=== PATIENT | male | born 1995 | race Two or more races ===

== ENCOUNTER 2018-01-23 11:22 | Inpatient (IN) | payer OTHER ==
[~2018-01-23] VITALS: Ht 185.4 cm; Wt 68.0 kg
== END 2018-01-26 17:00 | disposition home or self-care (01) | DRG 639 ==
LOC: ER 11:22 → ICU-2 15:00 → MEDJ 01-25 16:04
PROC: 4A033R1 Measurement of Arterial Saturation, Peripheral, Percutaneous Approach (ICD-10-PCS; principal; 2018-01-23)
DX: E10.10 Type 1 diabetes mellitus with ketoacidosis without coma (principal)

== ENCOUNTER 2019-03-04 07:55 | Inpatient (IN) | payer OTHER ==
[~2019-03-04] VITALS: Ht 182.9 cm; Wt 63.0 kg
[2019-03-04] MEDS ORDERED: HUMALOG100 UNIT/2 (08:14)
[2019-03-04] MEDS ORDERED: LANTUS SOL100 UNIT/1 (08:15)
== END 2019-03-08 16:24 | disposition home or self-care (01) | DRG 638 ==
LOC: ER 07:55 → ICU-2 15:22 → MEDJ 15:22 → ICU 15:22 → MEDJ 03-07 12:03
PROVIDERS: ADMIT Internal Medicine
PROC: 4A033R1 Measurement of Arterial Saturation, Peripheral, Percutaneous Approach (ICD-10-PCS; principal; 2019-03-04)
PROC: BW21ZZZ Computerized Tomography (CT Scan) of Abdomen and Pelvis (ICD-10-PCS; 2019-03-04)
DX: E10.10 Type 1 diabetes mellitus with ketoacidosis without coma (principal); N17.8 Other acute kidney failure; E86.0 Dehydration; E87.8 Other disorders of electrolyte and fluid balance, not elsewhere classified; E87.5 Hyperkalemia; R31.29 Other microscopic hematuria; R10.32 Left lower quadrant pain; Z79.4 Long term (current) use of insulin

== ENCOUNTER 2022-12-06 18:10 | Inpatient (IN) | payer OTHER ==
[~2022-12-06] VITALS: Ht 182.9 cm; Wt 132.9 kg
[~2022-12-06 18:10] MED LIST: ADMELOG100 UNIT/1; AMOX1TAB5 PO; HUMALOG100 UNIT/1 SUBCUTANEO; HUMALOG100 UNIT/2; HUMALOG100 UNIT/2 SQ; LANTUS SOL100 UNIT/1; LANTUS SOL100 UNIT/1 SQ; LANTUS SOL100 UNIT/1 SUBCUTANEO; LOSARTAN POTASSI1 GM MC; METOPROLOL SUCC25 MG; NEURONTIN600 M1; NIFEDIPINE20 MG PO; TOPROL XL50 M1
[2022-12-06] MEDS ORDERED: SIMBALTA (18:34)
[2022-12-06] MEDS ORDERED: TOPROL XL50 M1 (18:34)
--- NOTE | 2022-12-06 18:46 | NUR ---
SE RECIBE PTE ALERTA Y ORIENTADO X3 EL CUAL REFIERE VENIR POR VOMITOS Y DIARREAS DESDE IFEANYI. PTE REFIERE SER DIABETICO TIPO 1. SE MIDEN S/V, SE REALIZA DXT, PTE CON DXT EN 448. SE REALIZA EKG A PTE Y SE PRESENTA A MD. PTE SE COLOCA EN UNIDAD DE CRITICO ESTER ORDEN MEDICA. PTE SE CONECTA A MONITOR CARDIACO CON OXIMETRIA CONTINUA Y SE ORIENTA.
--- NOTE | 2022-12-06 19:04 | NUR ---
SE RECIBE PTE MASCULINO DE 25 ANOS ALERTA Y ORIENTADO X3 QUIEN AL MOMENTO NO REFIERE DOLOR. PTE AL MOMENTO EVALUADO POR DR TENORIO QUIEN ORDENA TX MED. SE LLEVA ACABO VENOPUNCION BAJO MEDIDAS ACEPTICAS. PTE PEND A RESULTADOS DE LAB. PTE SE CONETA A TELEMETRIA Y OXIMETRIA MARYA Y SE MANTIENE RECIBIENDO INFUCION DE 0.9% NSS A 1000 ML/HRA. PTE SE MANTIENE EN CRITICO 3 BAJO OBSERBACION POR CAMBIO EN KUNZ CONDICION.
[2022-12-06 19:12] LABS: HEMATOCRIT 48.3 % (39.0-48.0); HEMOGLOBIN 16.5 g/dL (13-16.00); MEAN CELL VOLUME 84.5 fL (80.0-100.00); MEAN CORPUSCULAR HEMOGLOBIN 28.9 pg (27.00-32.0); MEAN CORPUSCULAR HGB CONC 34.2 g/dl (32.0-36.0); PLATELET COUNT 316 K/uL (150-450); RED BLOOD COUNT 5.72 M/uL (4.00-6.00); RED CELL DISTRIBUTION WIDTH 13.7 % (11.5-14.5)
[2022-12-06 19:23] LABS: ABG PH 7.344 (7.35-7.45); ABG PO2 111.3 mmHg (80-100); ABG pCO2 33.8 mmHg (35-45); BASE EXCESS -6.7 mmol/l; SaO2 97.9 %
[2022-12-06 19:37] LABS: ALBUMIN 4.3 gm/dL (3.4-5.0); BILIRUBIN TOTAL 2.05 mg/dL (0.3-1.2); BILIRUBIN,CONJUGATED 0.47 mg/dL (0.0-0.2); BILIRUBIN,UNCONJUGATED 1.58 mg/dL (0.0-0.6); CALCIUM 9.8 mg/dL (8.5-10.1); CREATININE SERUM 1.52 mg/dL (0.70-1.30); GFR 56.16; GLOBULINA 4.1 G/DL (2.4-3.5); POTASSIUM 4.04 mEq/L (3.5-5.1); TOTAL PROTEIN 8.4 gm/dL (6.4-8.2)
[2022-12-06 19:44] LABS: allen test SATISFACTORY; o2 21 %; puncture site RADIAL RIGHT
[2022-12-06 19:47] LABS: URINE APPEARANCE Clear; URINE BILIRRUBIN Negative (NEGATIVE); URINE BLOOD Negative; URINE COLOR Yellow; URINE LEUKOCYTE Negative; URINE NITRATE Negative; URINE PROTEIN Negative (NEGATIVE); URINE UROBILINOGEN 0.2 E.U./dl
[2022-12-06 19:51] LABS: URINE BACTERIA 11.3 uL (0.0-1933); URINE EPITHELIAL CELLS 1.5 uL (0.0-38.8); URINE WBC 2.7 uL (0.0-23.2)
[2022-12-06 19:57] LABS: URINE GLUCOSE >=1000 MG/DL (NEGATIVE); URINE RBC 1.7 uL (0.0-20.8)
--- NOTE | 2022-12-06 20:50 | NUR ---
DR. TENORIO REFIERE QUE DESPUES QUE SE REALICE SONOGRAMA ABDOMINAL HUBICAR PTE AL AREA DE SECCION K CON MONITOR, NBP Y OXIMETRIA CONTINUA.
[2022-12-06 22:21] LABS: HEMATOCRIT 41.1 % (39.0-48.0); MEAN CELL VOLUME 83.2 fL (80.0-100.00); MEAN CORPUSCULAR HEMOGLOBIN 28.4 pg (27.00-32.0); MEAN CORPUSCULAR HGB CONC 34.1 g/dl (32.0-36.0); PLATELET COUNT 261 K/uL (150-450); RED BLOOD COUNT 4.94 M/uL (4.00-6.00); RED CELL DISTRIBUTION WIDTH 13.4 % (11.5-14.5)
--- NOTE | 2022-12-06 23:44 | NUR ---
SE RECIBE PTE EN CAMA CON BARANDAS ELEVADAS EN POSICION SEMI VAZQUEZ. PTE CONECTADO A AMONITOR CARDIACO Y OXIMETRIA. PTE CANALIZADO EN BRAZO Y ANTEBRAZO DERECHO AREAS LIBRES DE EDEMA Y DE ENROJECIMIENTO. PTE SE MANTIENE BAJO OBSERVACION POR CAMBIOS.
[2022-12-07 02:15] LABS: CKMB 2.8 NG/ML (0.5-3.6)
[2022-12-07 08:09] LABS: ALBUMIN 2.9 gm/dL (3.4-5.0); BILIRUBIN TOTAL 2.01 mg/dL (0.3-1.2); BILIRUBIN,CONJUGATED 0.28 mg/dL (0.0-0.2); BILIRUBIN,UNCONJUGATED 1.73 mg/dL (0.0-0.6); CALCIUM 8.7 mg/dL (8.5-10.1); CHOL HDL RATIO 1.6 (0-5.0); CREATININE SERUM 0.95 mg/dL (0.70-1.30); GFR 96.59; GLOBULINA 2.7 G/DL (2.4-3.5); POTASSIUM 4.75 mEq/L (3.5-5.1); TOTAL PROTEIN 5.6 gm/dL (6.4-8.2)
[2022-12-07 08:11] LABS: C-REACTIVE PROTEIN 1.35 MG/DL (0.00-0.29)
[2022-12-07 08:20] LABS: HEMATOCRIT 40.4 % (39.0-48.0); HEMOGLOBIN 13.3 g/dL (13-16.00); MEAN CELL VOLUME 85.6 fL (80.0-100.00); MEAN CORPUSCULAR HEMOGLOBIN 28.2 pg (27.00-32.0); MEAN CORPUSCULAR HGB CONC 32.9 g/dl (32.0-36.0); PLATELET COUNT 241 K/uL (150-450); RED BLOOD COUNT 4.72 M/uL (4.00-6.00); RED CELL DISTRIBUTION WIDTH 13.1 % (11.5-14.5)
[2022-12-07 08:31] LABS: ERYTHROCYTE SEDIMENTATION RATE 2 mm/hr
[2022-12-07 08:33] LABS: PH,URINE 5.5 (5.0-8.0); URINE APPEARANCE Clear; URINE BILIRRUBIN Negative (NEGATIVE); URINE BLOOD Negative; URINE COLOR Yellow; URINE LEUKOCYTE Negative; URINE NITRATE Negative; URINE PROTEIN Negative (NEGATIVE); URINE UROBILINOGEN 0.2 E.U./dl
[2022-12-07 08:36] LABS: URINE EPITHELIAL CELLS 8.4 uL (0.0-38.8); URINE WBC 12.8 uL (0.0-23.2)
[2022-12-07 09:11] LABS: INR 1.1; PARTIAL THROMBOPLASTIN TIME 26.2 SECONDS (22.0-34.0); PROTHROMBIN TIME 11.5 SECONDS (9.0-11.5)
[2022-12-07 09:14] LABS: URINE GLUCOSE >=1000 MG/DL (NEGATIVE)
[2022-12-07 11:04] LABS: CKMB 3.6 NG/ML (0.5-3.6)
[2022-12-07 18:49] LABS: CKMB 5.4 NG/ML (0.5-3.6)
[2022-12-08 11:52] LABS: HEMATOCRIT 43.7 % (39.0-48.0); HEMOGLOBIN 15.1 g/dL (13-16.00); MEAN CELL VOLUME 84.2 fL (80.0-100.00); MEAN CORPUSCULAR HEMOGLOBIN 29.2 pg (27.00-32.0); MEAN CORPUSCULAR HGB CONC 34.6 g/dl (32.0-36.0); PLATELET COUNT 250 K/uL (150-450); RED BLOOD COUNT 5.19 M/uL (4.00-6.00); RED CELL DISTRIBUTION WIDTH 13.5 % (11.5-14.5)
[2022-12-08 11:56] LABS: ALBUMIN 3.3 gm/dL (3.4-5.0); BILIRUBIN TOTAL 0.72 mg/dL (0.3-1.2); CALCIUM 8.9 mg/dL (8.5-10.1); CREATININE SERUM 0.81 mg/dL (0.70-1.30); GFR 116.11; GLOBULINA 2.9 G/DL (2.4-3.5); POTASSIUM 3.56 mEq/L (3.5-5.1); TOTAL PROTEIN 6.2 gm/dL (6.4-8.2)
== END 2022-12-09 17:05 | disposition home or self-care (01) | DRG 638 ==
LOC: ER 18:10 → SEC-K 23:52 → MEDI 23:52
PROVIDERS: General Practice; Internal Medicine; ADMIT Internal Medicine; ATTEND Internal Medicine
PROC: BW21ZZZ Computerized Tomography (CT Scan) of Abdomen and Pelvis (ICD-10-PCS; principal; 2022-12-06)
PROC: 4A12X4Z Monitoring of Cardiac Electrical Activity, External Approach (ICD-10-PCS; 2022-12-07)
DX: E10.10 Type 1 diabetes mellitus with ketoacidosis without coma (principal); N17.9 Acute kidney failure, unspecified; E86.0 Dehydration; K52.89 Other specified noninfective gastroenteritis and colitis; I10 Essential (primary) hypertension; Z20.822 Contact with and (suspected) exposure to COVID-19; Z79.4 Long term (current) use of insulin; E10.40 Type 1 diabetes mellitus with diabetic neuropathy, unspecified

== ENCOUNTER 2022-12-19 12:56 | Emergency (ER) | payer OTHER ==
[~2022-12-19] VITALS: Ht 182.9 cm; Wt 60.3 kg
[~2022-12-19 12:56] MED LIST changes: +SIMBALTA
[2022-12-19 17:11] LABS: HEMATOCRIT 41.9 % (39.0-48.0); MEAN CELL VOLUME 84.3 fL (80.0-100.00); MEAN CORPUSCULAR HEMOGLOBIN 28.1 pg (27.00-32.0); MEAN CORPUSCULAR HGB CONC 33.4 g/dl (32.0-36.0); PLATELET COUNT 337 K/uL (150-450); RED BLOOD COUNT 4.98 M/uL (4.00-6.00); RED CELL DISTRIBUTION WIDTH 13.6 % (11.5-14.5)
[2022-12-19 17:36] LABS: INR 1.02; PARTIAL THROMBOPLASTIN TIME 26.7 SECONDS (22.0-34.0); PROTHROMBIN TIME 10.7 SECONDS (9.0-11.5)
== END 2022-12-19 19:19 | disposition home or self-care (01) ==
LOC: ER 12:56
PROVIDERS: Nurse Practitioner Family
DX: R04.0 Epistaxis (principal)

== ENCOUNTER 2023-05-22 13:21 | Emergency (ER) | payer OTHER ==
[~2023-05-22] VITALS: Ht 182.9 cm; Wt 65.8 kg
[2023-05-22] MEDS ORDERED: NIFEDIPINE20 MG (14:24)
[2023-05-22] MEDS ORDERED: COZAAR100 MG PO (14:24)
[2023-05-22] MEDS ORDERED: NEURONTIN300 MG PO (14:24)
[2023-05-22] MEDS ORDERED: CEFTRIAXONE SODIUM 1,000 MG VIAL IV ONE (15:00)
[2023-05-22] MEDS ORDERED: KETOROLAC TROMETHAMINE 60 MG VIAL IM ONE (15:00)
[2023-05-22 15:29] LABS: HEMATOCRIT 45.5 % (39.0-48.0); MEAN CELL VOLUME 83.7 fL (80.0-100.00); MEAN CORPUSCULAR HEMOGLOBIN 29.4 pg (27.00-32.0); MEAN CORPUSCULAR HGB CONC 35.1 g/dl (32.0-36.0); PLATELET COUNT 216 K/uL (150-450); RED BLOOD COUNT 5.44 M/uL (4.00-6.00); RED CELL DISTRIBUTION WIDTH 13.3 % (11.5-14.5)
[2023-05-22 15:43] LABS: ERYTHROCYTE SEDIMENTATION RATE 16 mm/hr
[2023-05-22 15:50] LABS: CALCIUM 8.9 mg/dL (8.5-10.1); CREATININE SERUM 0.83 mg/dL (0.70-1.30); GFR 112.88; POTASSIUM 3.54 mEq/L (3.5-5.1)
[2023-05-22] MEDS ORDERED: INTESTINEX680 M1 PO (16:14)
[2023-05-22] MEDS ORDERED: DICLOFENAC SODI50 MG PO (16:14)
[2023-05-22] MEDS ORDERED: AMOX-CLAV 875-1 EACH PO (16:14)
== END 2023-05-22 16:37 | disposition home or self-care (01) ==
LOC: ER 13:21
PROVIDERS: Nurse Practitioner Family
DX: R22.0 Localized swelling, mass and lump, head (principal); E11.9 Type 2 diabetes mellitus without complications; Z79.4 Long term (current) use of insulin; I10 Essential (primary) hypertension

== ENCOUNTER 2024-03-21 22:05 | Inpatient (IN) | payer OTHER ==
[~2024-03-21] VITALS: Ht 182.9 cm; Wt 68.9 kg
[~2024-03-21 22:05] MED LIST changes: +AMOX-CLAV 875-1 EACH PO; +COZAAR100 MG PO; +CYMBALTA60 MG; +DICLOFENAC SODI50 MG PO; +DULOXETINE HCL60 MG PO; +GABAPENTIN300 MG PO; +INTESTINEX680 M1 PO; +LOSARTAN POTASS25 MG PO; +NEURONTIN300 MG PO; +NIFEDIPINE10 MG PO; +NIFEDIPINE20 MG; +ZITHROMAX200 MG PO
--- NOTE | 2024-03-21 22:22 | NUR ---
PACIENTE REFIERE VOMITOS X7 Y DIARREAS X8 DESDE EN LA MADRUGADA
[2024-03-21] MEDS ORDERED: ADMELOG100 UNIT/1 SQ (22:24)
--- NOTE | 2024-03-21 22:28 | NUR ---
DXT [id number]
--- NOTE | 2024-03-21 22:33 | NUR ---
DRA. JEAN REFIERE COLOCA PACIENTE EN CRITICO
[2024-03-21] MEDS ORDERED: 0.9 % SODIUM CHLORIDE 1,000 ML IV STA ×2 (23:17→23:19)
[2024-03-21] MEDS ORDERED: FAMOTIDINE/PF 20 MG/2 ML VIAL ONE (23:24)
[2024-03-21] MEDS ORDERED: METOCLOPRAMIDE HCL 5 MG/ML VIAL ONE (23:24)
[2024-03-21] MEDS ORDERED: METOCLOPRAMIDE HCL 5 MG/ML VIAL IV ONE (23:30)
[2024-03-21] MEDS ORDERED: FAMOtidine 10 MG/ML (4ML VIAL) IV ONE (23:30)
--- NOTE | 2024-03-22 00:04 | NUR ---
SE EDUCA A PTE SOBRE TX MEDICO, SE AMARILIS MUESTRAS DE LABORATORIO UTILIZANDO MEDIDAS ASEPTICAS. SE COLOCA H/L ANNE DE EDEMA. SE ADMINISTRAN MEDICAMENTOS ESTER ORDEN MEDICA. SE NOTIFICA ABGS PENDIENTES A REALIZAR. SE MIDEN S/V A PTE Y SE DOCUMENTAN. SE VERIFICA DXT DE PTE Y SE DOCUMENTA. PTE SE CONTINUA MONITORIANDO POR CAMBIOS.
[2024-03-22 00:06] LABS: URINE APPEARANCE Clear; URINE BILIRRUBIN Negative (NEGATIVE); URINE BLOOD Negative; URINE COLOR Yellow; URINE LEUKOCYTE Negative; URINE NITRATE Negative; URINE PROTEIN Negative (NEGATIVE); URINE UROBILINOGEN 0.2 E.U./dl
[2024-03-22 00:08] LABS: HEMOGLOBIN 17.3 g/dL (13-16.00); MEAN CELL VOLUME 88.4 fL (80.0-100.00); MEAN CORPUSCULAR HEMOGLOBIN 28.2 pg (27.00-32.0); MEAN CORPUSCULAR HGB CONC 31.9 g/dl (32.0-36.0); PLATELET COUNT 340 K/uL (150-450); RED BLOOD COUNT 6.13 M/uL (4.00-6.00); RED CELL DISTRIBUTION WIDTH 14.6 % (11.5-14.5)
[2024-03-22 00:09] LABS: HEMATOCRIT 54.2 % (39.0-48.0); URINE BACTERIA 184.8 uL (0.0-1933); URINE EPITHELIAL CELLS 10.8 uL (0.0-38.8); URINE RBC 2.5 uL (0.0-20.8)
[2024-03-22 00:10] LABS: URINE CAST 0.44 uL (0.0-1.40); URINE GLUCOSE >=1000 MG/DL (NEGATIVE); URINE KETONE 80 (NEGATIVE); URINE WBC 0.9 uL (0.0-23.2)
[2024-03-22 00:17] LABS: INR 1.14; PARTIAL THROMBOPLASTIN TIME 26.2 SECONDS (22.0-34.0); PROTHROMBIN TIME 12.3 SECONDS (9.0-11.5)
[2024-03-22 00:22] LABS: ALBUMIN 4.4 gm/dL (3.4-5.0); BILIRUBIN TOTAL 3.5 mg/dL (0.3-1.2); CREATININE SERUM 1.71 mg/dL (0.70-1.30); GFR 48.63; POTASSIUM 4.92 mEq/L (3.5-5.1); TOTAL PROTEIN 8.4 gm/dL (6.4-8.2)
[2024-03-22] MEDS ORDERED: INSULIN REGULAR, HUMAN 1,000 UNIT/10 ML UNITS IV STA ×2 (00:31→02:43)
[2024-03-22] MEDS ORDERED: SODIUM BICARBONATE 1 MEQ/ML DISP.SYRIN 50ML IV STA (00:32)
[2024-03-22] MEDS ORDERED: SODIUM BICARBONATE 50MEQ/50ML VIAL IV ONE (00:44)
[2024-03-22] MEDS ORDERED: SODIUM BICARBONATE 1 MEQ/ML DISP.SYRIN 50ML IV SCH (00:45)
--- NOTE | 2024-03-22 01:05 | NUR ---
SE EJECUTAN ORDENS MEDICAS NUEVAS. SE ADMINISTRAN 2 AMPOLLETAS DE BICARBONATO 100MEQ IV PUSH Y SE COLOCA 1 AMP DE BICABONATO 50MEQ EN 0.9NSS DE 1000ML BAJANDO A 200ML/HR. SE COLOCA HUMULIN R 7 UNIDADES A PTE IV ESTER ORDEN MEDICA. PTE SE CONTINUA MONITORIANDO POR CAMBIOS.
[2024-03-22 03:30] LABS: ABG PH 7.177 (7.35-7.45); ABG PO2 118.7 mmHg (80-100); ABG pCO2 22.6 mmHg (35-45)
[2024-03-22 03:31] LABS: BICARBONATE 8.2 mmol/l (23-25); Tco2 8.9 mmol/l; allen test SATISFACTORY; o2 32 %; puncture site RADIAL RIGHT
[2024-03-22 03:32] LABS: BASE EXCESS 18.3 mmol/l
[2024-03-22 03:33] LABS: SaO2 96.7 %
[2024-03-22 06:35] LABS: MEAN CELL VOLUME 84.3 fL (80.0-100.00); MEAN CORPUSCULAR HEMOGLOBIN 28.7 pg (27.00-32.0); MEAN CORPUSCULAR HGB CONC 34.1 g/dl (32.0-36.0); PLATELET COUNT 269 K/uL (150-450); RED BLOOD COUNT 5.22 M/uL (4.00-6.00); RED CELL DISTRIBUTION WIDTH 14.3 % (11.5-14.5)
[2024-03-22 06:35] LABS: ABG PH 7.322 (7.35-7.45); ABG PO2 150.2 mmHg (80-100); ABG pCO2 26.4 mmHg (35-45); BASE EXCESS -10.8 mmol/l; BICARBONATE 13.4 mmol/l (23-25); Tco2 14.2 mmol/l; allen test SATISFACTORY; o2 32 %; puncture site RADIAL RIGHT
[2024-03-22 06:56] LABS: ALBUMIN 3.2 gm/dL (3.4-5.0); BILIRUBIN TOTAL 2.77 mg/dL (0.3-1.2); CALCIUM 8.4 mg/dL (8.5-10.1); CREATININE SERUM 1.07 mg/dL (0.70-1.30); GFR 83.54; GLOBULINA 3.2 G/DL (2.4-3.5); POTASSIUM 4.3 mEq/L (3.5-5.1); TOTAL PROTEIN 6.4 gm/dL (6.4-8.2)
[2024-03-22] MEDS ORDERED: 0.9 % SODIUM CHLORIDE 1,000 ML IV SCH ×2 (07:00→13:00)
--- NOTE | 2024-03-22 07:39 | NUR ---
SE RECIBE PACIENTE EN CAMA #2 AREA DE ICU2. SE OFRECE RAFA PARA EVALUAR CONDI- CION Y RUFUS CUIDADOS CORRESPONDIENTES. PACIENTE DORMIDO. SE MIDEN Y DOCUMENTAS S/V. IVF'S PATENTES, BAJANDO .9 NSS POR VENO PUNCIN EN BRAZO DERECHO, AREA ANNE DE EDEMA Y/O ERITEMA. PACIENTE PENDIENTE A CONSSULTA. BARANDAS ELEVADAS POR KUNZ SEGURIDAD. SE MONITOREA POR CAMBIOS SIGNIFICATIVOS.
[2024-03-22] MEDS ORDERED: CEFTRIAXONE SODIUM 2,000 MG in 0.9 % SODIUM CHLORIDE 100 ML IV SCH (12:55)
[2024-03-22] MEDS ORDERED: INSULIN REGULAR, HUMAN 100 UNITS in 0.9 % SODIUM CHLORIDE 100 ML IV SCH (13:00)
[2024-03-22 15:15] VITALS: BP 100/62; O2SAT 98
[2024-03-22] MEDS ORDERED: INSULIN REGULAR, HUMAN 1,000 UNIT/10 ML UNITS ONE (16:30)
[2024-03-22] MEDS ORDERED: CEFTRIAXONE SODIUM 2,000 MG VIAL ONE (16:30)
[2024-03-22 17:06] VITALS: BP 140/70
[2024-03-22 17:48] LABS: CALCIUM 8.5 mg/dL (8.5-10.1); CREATININE SERUM 1.28 mg/dL (0.70-1.30); GFR 67.93; MAGNESIUM 2.5 mg/dL (1.8-2.4); POTASSIUM 5.25 mEq/L (3.5-5.1)
[2024-03-22 18:12] LABS: URINE APPEARANCE Clear; URINE BILIRRUBIN Negative (NEGATIVE); URINE BLOOD Negative; URINE COLOR Yellow; URINE LEUKOCYTE Negative; URINE NITRATE Negative; URINE PROTEIN Negative (NEGATIVE); URINE UROBILINOGEN 0.2 E.U./dl
[2024-03-22 18:15] LABS: URINE BACTERIA 119.9 uL (0.0-1933)
[2024-03-22 18:52] LABS: URINE CAST 0.88 uL (0.0-1.40); URINE GLUCOSE >=1000 MG/DL (NEGATIVE); URINE KETONE >=160 (NEGATIVE); URINE WBC 1.7 uL (0.0-23.2)
[2024-03-22 20:52] VITALS: BP 110/68; O2SAT 99
[2024-03-23] VITALS: BP 130/85; O2SAT 99
[2024-03-23 05:00] VITALS: BP 101/59; O2SAT 99
[2024-03-23 07:31] LABS: CALCIUM 9.1 mg/dL (8.5-10.1); CREATININE SERUM 1.15 mg/dL (0.70-1.30); GFR 76.87; POTASSIUM 3.87 mEq/L (3.5-5.1)
[2024-03-23 08:33] VITALS: BP 112/72; O2SAT 99
[2024-03-23 18:01] VITALS: BP 132/93
[2024-03-24 01:26] VITALS: BP 127/87; O2SAT 99
[2024-03-24 08:13] VITALS: BP 113/70; O2SAT 97
[2024-03-24 15:11] LABS: HEMATOCRIT 44.8 % (39.0-48.0); HEMOGLOBIN 15.2 g/dL (13-16.00); MEAN CELL VOLUME 85.5 fL (80.0-100.00); MEAN CORPUSCULAR HEMOGLOBIN 28.9 pg (27.00-32.0); MEAN CORPUSCULAR HGB CONC 33.9 g/dl (32.0-36.0); PLATELET COUNT 255 K/uL (150-450); RED BLOOD COUNT 5.24 M/uL (4.00-6.00); RED CELL DISTRIBUTION WIDTH 14.1 % (11.5-14.5)
[2024-03-24 17:03] VITALS: BP 125/88
[2024-03-25 02:15] VITALS: BP 114/75; O2SAT 100
[2024-03-25 08:55] VITALS: BP 124/86
== END 2024-03-25 09:46 | disposition home or self-care (01) | DRG 639 ==
LOC: ER 22:08 → SEC-K 03-22 14:02 → MEDJ 03-22 14:02 → ICU-2 03-23 06:56 → MEDJ 03-23 08:16
PROVIDERS: Emergency Medicine; General Practice; Internal Medicine Endocrinology, Diabetes & Metabolism; ADMIT Internal Medicine; ATTEND Internal Medicine
DX: E10.10 Type 1 diabetes mellitus with ketoacidosis without coma (principal); D72.828 Other elevated white blood cell count; Z76.4 Other boarder to healthcare facility

== ENCOUNTER → 2024-03-30 | Emergency (ER) | payer OTHER ==
[~2024-03-30] VITALS: Ht 182.9 cm; Wt 65.8 kg
[~2024-03-30] MED LIST changes: +ADMELOG100 UNIT/1 SQ
== END | disposition left against medical advice (07) ==
LOC: ER 19:13
DX: Z53.21 Procedure and treatment not carried out due to patient leaving prior to being seen by health care provider (principal)

== ENCOUNTER 2024-06-07 11:49 | Inpatient (IN) | payer OTHER ==
[~2024-06-07] VITALS: Ht 182.9 cm; Wt 68.0 kg
--- NOTE | 2024-06-07 12:43 | NUR ---
PTE ALERTA Y ORIENTADO X3 REFIERE TENER VOMITOS DESDE ESTAQ MANANA SE AMARILIS SV Y SE UBICA EN OBSERVACION 08, DEXTRO EN 343MG/DL.
[2024-06-07] MEDS ORDERED: 0.9 % SODIUM CHLORIDE 1,000 ML IV SCH ×2 (14:00→21:15)
[2024-06-07] MEDS ORDERED: ONDANSETRON HCL 2 MG/ML VIAL IV ONE (14:00)
[2024-06-07] MEDS ORDERED: ONDANSETRON HCL 2 MG/ML VIAL ONE (14:02)
--- NOTE | 2024-06-07 14:22 | NUR ---
SE ADMINITSRA TX ESTER ORDEN MEDICA Y SE REALIZA LAB. SE ORIENTA A PTE QUIEN REFIERE ENTENDER Y ACEPTAR.
[2024-06-07 14:32] LABS: HEMATOCRIT 52.1 % (39.0-48.0); HEMOGLOBIN 17.2 g/dL (13-16.00); MEAN CELL VOLUME 87.5 fL (80.0-100.00); MEAN CORPUSCULAR HEMOGLOBIN 28.9 pg (27.00-32.0); PLATELET COUNT 340 K/uL (150-450); RED BLOOD COUNT 5.95 M/uL (4.00-6.00); RED CELL DISTRIBUTION WIDTH 14.5 % (11.5-14.5)
[2024-06-07 14:51] LABS: ALBUMIN 4.2 gm/dL (3.4-5.0); BILIRUBIN TOTAL 3.48 mg/dL (0.3-1.2); CREATININE SERUM 1.46 mg/dL (0.70-1.30); GFR 58.36; GLOBULINA 4.3 G/DL (2.4-3.5); TOTAL PROTEIN 8.5 gm/dL (6.4-8.2)
[2024-06-07 14:52] LABS: POTASSIUM 4.85 mEq/L (3.5-5.1)
[2024-06-07] MEDS ORDERED: PIPERACILLIN/TAZOBACTAM SODIUM 3.375 GM VIAL IV ONE ×2 (18:00→18:13)
[2024-06-07] MEDS ORDERED: INSULIN REGULAR, HUMAN 1,000 UNIT/10 ML UNITS SUBCUTANEO ONE (18:00)
[2024-06-07] MEDS ORDERED: 0.9 % SODIUM CHLORIDE 1,000 ML IV ONE (18:00)
[2024-06-07 18:07] LABS: URINE APPEARANCE Clear; URINE BILIRRUBIN Negative (NEGATIVE); URINE BLOOD Negative; URINE COLOR Yellow; URINE LEUKOCYTE Negative; URINE NITRATE Negative; URINE PROTEIN Negative (NEGATIVE); URINE UROBILINOGEN 0.2 E.U./dl
[2024-06-07 18:15] LABS: URINE RBC 2.5 uL (0.0-20.8)
[2024-06-07 18:17] LABS: URINE BACTERIA 3.6 uL (0.0-1933); URINE CAST 0.73 uL (0.0-1.40); URINE EPITHELIAL CELLS 0.9 uL (0.0-38.8); URINE GLUCOSE >=1000 MG/DL (NEGATIVE); URINE KETONE >=160 (NEGATIVE); URINE WBC 0.7 uL (0.0-23.2)
[2024-06-07 19:48] LABS: HEMATOCRIT 47.8 % (39.0-48.0); HEMOGLOBIN 15.8 g/dL (13-16.00); MEAN CELL VOLUME 86.9 fL (80.0-100.00); MEAN CORPUSCULAR HEMOGLOBIN 28.7 pg (27.00-32.0); PLATELET COUNT 295 K/uL (150-450); RED CELL DISTRIBUTION WIDTH 14.9 % (11.5-14.5)
--- NOTE | 2024-06-07 20:05 | NUR ---
SE NOTIFICAN VERONICA DYKES
[2024-06-07 20:40] LABS: CALCIUM 8.9 mg/dL (8.5-10.1); CREATININE SERUM 1.37 mg/dL (0.70-1.30); GFR 62.81; POTASSIUM 4.7 mEq/L (3.5-5.1)
[2024-06-07] MEDS ORDERED: CEFTRIAXONE SODIUM 2,000 MG in 0.9 % SODIUM CHLORIDE 100 ML IV SCH (21:14)
[2024-06-07] MEDS ORDERED: FAMOTIDINE/PF 20 MG in 0.9 % SODIUM CHLORIDE 8 ML IV PUSH SCH (21:14)
[2024-06-07] MEDS ORDERED: DEXTROSE 50 % IN WATER 0.5 G/ML DISP.SYRIN IV PRN (21:15)
[2024-06-07] MEDS ORDERED: INSULIN LISPRO 1,000 UNIT/10 ML UNITS SUBCUTANEO PRN (21:15)
[2024-06-07] MEDS ORDERED: ACETAMINOPHEN 500 MG GEL..CAP PO PRN (21:15)
[2024-06-07] MEDS ORDERED: ONDANSETRON HCL 4 MG in 0.9 % SODIUM CHLORIDE 50 ML IV PRN (21:15)
[2024-06-07 21:21] LABS: ABG PH 7.251 (7.35-7.45); ABG PO2 109.9 mmHg (80-100); ABG pCO2 29.8 mmHg (35-45); BASE EXCESS -12.9 mmol/l; BICARBONATE 12.8 mmol/l (23-25); SaO2 96.9 %; Tco2 13.7 mmol/l
[2024-06-07] MEDS ORDERED: POTASSIUM CHLORIDE/NACL 0.9% 1,000 ML IV NR (22:00)
[2024-06-07] MEDS ORDERED: INSULIN REGULAR, HUMAN 100 UNITS in 0.9 % SODIUM CHLORIDE 100 ML IV SCH (22:00)
[2024-06-07] MEDS ORDERED: DEXTROSE 5 % AND 0.9 % NACL 1,000 ML IV SCH (22:00)
[2024-06-07] MEDS ORDERED: INSULIN REGULAR, HUMAN 1,000 UNIT/10 ML UNITS ONE (22:02)
[2024-06-07] MEDS ORDERED: FAMOTIDINE/PF 20 MG/2 ML VIAL ONE (22:07)
[2024-06-07] MEDS ORDERED: CEFTRIAXONE SODIUM 2,000 MG VIAL ONE (22:07)
[2024-06-07 22:20] LABS: INR 1.15; PARTIAL THROMBOPLASTIN TIME 24.5 SECONDS (22.0-34.0); PROTHROMBIN TIME 12.4 SECONDS (9.0-11.5)
[2024-06-07 22:26] LABS: ALBUMIN 3.7 gm/dL (3.4-5.0); BILIRUBIN TOTAL 3.03 mg/dL (0.3-1.2); TOTAL PROTEIN 7.7 gm/dL (6.4-8.2)
[2024-06-07 22:28] LABS: BILIRUBIN,CONJUGATED 0.33 mg/dL (0.0-0.2); BILIRUBIN,UNCONJUGATED 2.7 mg/dL (0.0-0.6)
[2024-06-07 22:42] LABS: CALCIUM 10.1 mg/dL (8.5-10.1); CREATININE SERUM 1.49 mg/dL (0.70-1.30); GFR 57.01; POTASSIUM 4.87 mEq/L (3.5-5.1)
[2024-06-07 22:44] LABS: allen test SATISFACTORY; mode ROOM AIR; o2 21 %; puncture site RADIAL LEFT
[2024-06-07 22:47] VITALS: BP 117/72; O2SAT 100
[2024-06-07 23:16] VITALS: BP 102/69; O2SAT 100
[2024-06-08] VITALS (10 sets, daily range): BP systolic 100–125; BP diastolic 50–93; O2SAT 98–100
[2024-06-08 11:52] LABS: CALCIUM 8.5 mg/dL (8.5-10.1); CREATININE SERUM 1.03 mg/dL (0.70-1.30); GFR 87.29; POTASSIUM 4.1 mEq/L (3.5-5.1)
[2024-06-08] MEDS ORDERED: SODIUM CHLORIDE 0.45 % 1,000 ML IV SCH (22:30)
[2024-06-09 04:00] VITALS: BP 106/69; O2SAT 100
[2024-06-09 06:42] LABS: HEMATOCRIT 44.5 % (39.0-48.0); HEMOGLOBIN 14.8 g/dL (13-16.00); MEAN CELL VOLUME 86.7 fL (80.0-100.00); MEAN CORPUSCULAR HEMOGLOBIN 28.9 pg (27.00-32.0); MEAN CORPUSCULAR HGB CONC 33.3 g/dl (32.0-36.0); PLATELET COUNT 229 K/uL (150-450); RED BLOOD COUNT 5.13 M/uL (4.00-6.00); RED CELL DISTRIBUTION WIDTH 14.7 % (11.5-14.5)
[2024-06-09 07:21] LABS: ALBUMIN 2.8 gm/dL (3.4-5.0); BILIRUBIN TOTAL 1.46 mg/dL (0.3-1.2); CALCIUM 8.4 mg/dL (8.5-10.1); CREATININE SERUM 0.79 mg/dL (0.70-1.30); GFR 118.56; GLOBULINA 2.7 G/DL (2.4-3.5); PHOSPHOROUS 2.6 mg/dL (2.5-4.9); POTASSIUM 3.72 mEq/L (3.5-5.1); TOTAL PROTEIN 5.5 gm/dL (6.4-8.2)
[2024-06-09 07:23] VITALS: BP 111/76; O2SAT 99
[2024-06-09 07:28] LABS: C-REACTIVE PROTEIN 1.38 MG/DL (0.00-0.29)
[2024-06-09 12:00] VITALS: BP 124/83; O2SAT 100
[2024-06-09 15:50] VITALS: BP 126/95; O2SAT 100
[2024-06-09 19:48] VITALS: BP 136/97; O2SAT 99
[2024-06-09] MEDS ORDERED: FAMOtidine 20 MG TABLET PO SCH (21:00)
[2024-06-10 02:04] VITALS: BP 128/83; O2SAT 98
[2024-06-10] MEDS ORDERED: CEFTRIAXONE SODIUM 2,000 MG VIAL ONE (08:09)
[2024-06-10 10:20] VITALS: BP 105/70; O2SAT 98
[2024-06-10 17:40] VITALS: BP 143/103; O2SAT 99
== END 2024-06-10 16:07 | disposition home or self-care (01) | DRG 871 ==
LOC: ER 11:50 → SURH 21:24 → ICU 21:24 → ICU-2 22:42 → ICU 06-08 02:45 → MEDI 06-09 19:27
PROVIDERS: Emergency Medicine; General Practice; Internal Medicine Endocrinology, Diabetes & Metabolism; Internal Medicine Infectious Disease; ADMIT Student in an Organized Health Care Education/Training Program; ATTEND Student in an Organized Health Care Education/Training Program
PROC: BW21ZZZ Computerized Tomography (CT Scan) of Abdomen and Pelvis (ICD-10-PCS; principal; 2024-06-07)
DX: A41.9 Sepsis, unspecified organism (principal); E10.10 Type 1 diabetes mellitus with ketoacidosis without coma; N17.8 Other acute kidney failure; R65.10 Systemic inflammatory response syndrome (SIRS) of non-infectious origin without acute organ dysfunction; E86.0 Dehydration

== ENCOUNTER 2024-07-05 14:25 | Inpatient (IN) | payer OTHER ==
[~2024-07-05] VITALS: Ht 182.9 cm; Wt 68.0 kg
--- NOTE | 2024-07-05 15:55 | NUR ---
PACIENTE ALERTA Y ORIENTADO X3 EL MISMO REFIERE TENER LA AZUCAR ELEVADA SE LE RESTIMA LA CUAL DA 599 .S/V ESTABLE DENTRO DE KUNZ CONDICION .PACIENTE EN ESPERA DE EVALUACION MEDICA.
[2024-07-05] MEDS ORDERED: FAMOTIDINE/PF 20 MG in 0.9 % SODIUM CHLORIDE 8 ML IV PUSH STA (16:27)
[2024-07-05] MEDS ORDERED: ONDANSETRON HCL 2 MG/ML VIAL IV ONE (16:30)
[2024-07-05] MEDS ORDERED: INSULIN REGULAR, HUMAN 100 UNITS in 0.9 % SODIUM CHLORIDE 100 ML IV SCH (16:30)
[2024-07-05] MEDS ORDERED: 0.9 % SODIUM CHLORIDE 1,000 ML IV SCH ×2 (16:30→19:00)
[2024-07-05] MEDS ORDERED: INSULIN REGULAR, HUMAN 1,000 UNIT/10 ML UNITS IV ONE (16:30)
[2024-07-05] MEDS ORDERED: ONDANSETRON HCL 2 MG/ML VIAL ONE (16:36)
[2024-07-05] MEDS ORDERED: FAMOTIDINE/PF 20 MG/2 ML VIAL ONE ×2 (16:36→21:08)
[2024-07-05 16:41] LABS: BASO % 0.6 % (0.1-1.2); EOS # 0.01 (0.04-0.54); HEMATOCRIT 53.4 % (40.1-51.0); HEMOGLOBIN 17.7 g/dL (13.7-17.5); LYMPH % 6.1 % (19.3-53.1); MEAN CORPUSCULAR HEMOGLOBIN 28.3 pg (25.6-32.2); MONO # 1.99 (0.24-0.82); MONO % 8.6 % (4.7-12.5); NEUT # 19.03 (1.56-6.13); NEUT % 82.7 % (34.0-71.1); PLATELET COUNT 337 K/uL (163-369); RED BLOOD COUNT 6.26 M/uL (4.63-6.08)
--- NOTE | 2024-07-05 16:54 | NUR ---
SE ORIENTA PTE SOBRE TX A SEGUIR, EL MISMO REFIERE ENTENDER. SE JAMAAL MUESTRA DE LAB Y SE CANALIZA BAJO MEDIDAS ASEPTICAS
[2024-07-05 17:14] LABS: ALBUMIN 4.9 gm/dL (3.4-5.0); BILIRUBIN TOTAL 4.31 mg/dL (0.3-1.2); CALCIUM 10.3 mg/dL (8.5-10.1); CREATININE SERUM 1.85 mg/dL (0.70-1.30); GFR 44.41; GLOBULINA 3.7 G/DL (2.4-3.5); POTASSIUM 4.73 mEq/L (3.5-5.1); TOTAL PROTEIN 8.6 gm/dL (6.4-8.2)
[2024-07-05 17:18] LABS: INR 1.14; PARTIAL THROMBOPLASTIN TIME 25.9 SECONDS (22.0-34.0); PROTHROMBIN TIME 12.3 SECONDS (9.0-11.5)
[2024-07-05 17:19] LABS: ABG PO2 115.6 mmHg (80-100); ABG pCO2 25.3 mmHg (35-45); BASE EXCESS -17.5 mmol/l; BICARBONATE 9.2 mmol/l (23-25); SaO2 96.5 %
[2024-07-05 17:26] LABS: URINE APPEARANCE Clear; URINE BILIRRUBIN Negative (NEGATIVE); URINE BLOOD Negative; URINE COLOR Yellow; URINE LEUKOCYTE Negative; URINE NITRATE Negative; URINE PROTEIN Negative (NEGATIVE); URINE UROBILINOGEN 0.2 E.U./dl
[2024-07-05 17:29] LABS: ABG PH 7.177 (7.35-7.45); allen test SATISFACTORY; mode ROOM AIR; o2 21 %; puncture site RADIAL RIGHT
[2024-07-05 17:31] LABS: URINE BACTERIA 103.9 uL (0.0-1933); URINE EPITHELIAL CELLS 3.4 uL (0.0-38.8)
[2024-07-05 17:34] LABS: URINE GLUCOSE >=1000 MG/DL (NEGATIVE); URINE KETONE >=160 (NEGATIVE); URINE RBC 1.3 uL (0.0-20.8)
[2024-07-05 17:35] LABS: URINE CAST 0.29 uL (0.0-1.40); URINE WBC 0.9 uL (0.0-23.2)
[2024-07-05 17:41] LABS: COVID-19 AG NEGATIVE (NEGATIVE)
[2024-07-05] MEDS ORDERED: MAGNESIUM SULFATE 10,000 MG/20 ML VIAL IV ONE (17:45)
[2024-07-05 18:00] VITALS: BP 133/71; O2SAT 98
[2024-07-05] MEDS ORDERED: MAGNESIUM SULFATE IN WATER 2 GM/50 ML PIGGYBAG IV ONE (18:15)
[2024-07-05] MEDS ORDERED: ENOXAPARIN SODIUM 40 MG/0.4 ML SYRINGE SUBCUTANEO SCH (18:59)
[2024-07-05 19:00] VITALS: BP 119/64; O2SAT 98
[2024-07-05] MEDS ORDERED: ONDANSETRON HCL 4 MG in 0.9 % SODIUM CHLORIDE 50 ML IV PRN (19:00)
[2024-07-05] MEDS ORDERED: POTASSIUM CHLORIDE/NACL 0.9% 1,000 ML IV ONE (19:00)
[2024-07-05] MEDS ORDERED: ACETAMINOPHEN 500 MG GEL..CAP PO PRN (19:00)
[2024-07-05] MEDS ORDERED: FAMOTIDINE/PF 20 MG in 0.9 % SODIUM CHLORIDE 8 ML IV PUSH SCH (19:00)
[2024-07-05 20:00] VITALS: BP 127/71; O2SAT 98
[2024-07-05 21:00] VITALS: BP 153/75; O2SAT 98
[2024-07-05] MEDS ORDERED: POTASSIUM CHLORIDE/NACL 0.9% 20 MEQ/1,000 ML PIGGYBAG IV ONE (21:06)
[2024-07-05] MEDS ORDERED: ENOXAPARIN SODIUM 40 MG/0.4 ML SYRINGE SUBCUTANEO ONE (21:07)
[2024-07-05 21:29] VITALS: BP 153/75
[2024-07-05 22:00] VITALS: BP 115/60; O2SAT 97
[2024-07-05 22:10] LABS: CALCIUM 8.3 mg/dL (8.5-10.1); CREATININE SERUM 1.4 mg/dL (0.70-1.30); GFR 61.26; PHOSPHOROUS 3.7 mg/dL (2.5-4.9); POTASSIUM 4.55 mEq/L (3.5-5.1)
[2024-07-06] VITALS (15 sets, daily range): BP systolic 97–130; BP diastolic 47–82; O2SAT 94–99
[2024-07-06] MEDS ORDERED: DEXTROSE 5 %-0.45 % SOD CHLORD 1,000 ML IV STA (07:34)
[2024-07-06 07:42] LABS: MAGNESIUM 2.8 mg/dL (1.8-2.4); PHOSPHOROUS 2.9 mg/dL (2.5-4.9)
[2024-07-06 07:43] LABS: TSH 0.334 uIU/mL (0.358-3.74)
[2024-07-06] MEDS ORDERED: PANTOPRAZOLE SODIUM 80 MG in 0.9 % SODIUM CHLORIDE 100 ML IV SCH (07:45)
[2024-07-06] MEDS ORDERED: CEFTRIAXONE SODIUM 2,000 MG in 0.9 % SODIUM CHLORIDE 100 ML IV SCH (09:00)
[2024-07-06] MEDS ORDERED: METOCLOPRAMIDE HCL 10 MG in DEXTROSE 5 % IN WATER 50 ML IV SCH (09:00)
[2024-07-06 09:53] LABS: ABG PH 7.338 (7.35-7.45); ABG PO2 103.5 mmHg (80-100); ABG pCO2 32.7 mmHg (35-45); BASE EXCESS -7.5 mmol/l; BICARBONATE 17.2 mmol/l (23-25); SaO2 97.3 %; Tco2 18.2 mmol/l
[2024-07-06 10:21] LABS: allen test SATISFACTORY; mode ROOM AIR; o2 21 %; puncture site RADIAL RIGHT
[2024-07-06 11:20] LABS: CALCIUM 8.3 mg/dL (8.5-10.1); CREATININE SERUM 1.18 mg/dL (0.70-1.30); GFR 74.62; POTASSIUM 4.38 mEq/L (3.5-5.1)
[2024-07-06 11:22] LABS: TSH 0.278 uIU/mL (0.358-3.74)
[2024-07-06] MEDS ORDERED: SODIUM CHLORIDE 0.45 % 1,000 ML IV SCH (12:15)
[2024-07-06] MEDS ORDERED: CEFTRIAXONE SODIUM 2,000 MG VIAL IV SCH (18:34)
[2024-07-06] MEDS ORDERED: CEFTRIAXONE SODIUM 2,000 MG VIAL ONE (18:51)
[2024-07-06] MEDS ORDERED: INSULIN GLARGINE,HUM.REC.ANLOG 1,000 UNITS/10 ML UNITS SUBCUTANEO STA (20:41)
[2024-07-06] MEDS ORDERED: DEXTROSE 50 % IN WATER 0.5 G/ML VIAL IV PRN (20:45)
[2024-07-06] MEDS ORDERED: INSULIN LISPRO 1,000 UNIT/10 ML UNITS SUBCUTANEO PRN (20:45)
[2024-07-07] VITALS (11 sets, daily range): BP systolic 99–133; BP diastolic 52–87; O2SAT 96–100
[2024-07-07] MEDS ORDERED: METOCLOPRAMIDE HCL 5 MG/ML VIAL ONE (00:12)
[2024-07-07 06:57] LABS: BASO % 0.5 % (0.1-1.2); EOS # 0.24 (0.04-0.54); EOS % 2.2 % (0.7-7.0); HEMATOCRIT 41.1 % (40.1-51.0); HEMOGLOBIN 13.6 g/dL (13.7-17.5); LYMPH # 2.78 (1.18-3.74); LYMPH % 26.1 % (19.3-53.1); MONO # 0.85 (0.24-0.82); NEUT # 6.72 (1.56-6.13); NEUT % 62.9 % (34.0-71.1); PLATELET COUNT 233 K/uL (163-369); RED BLOOD COUNT 4.86 M/uL (4.63-6.08); RED CELL DISTRIBUTION WIDTH 13.2 % (11.6-14.4)
[2024-07-07 07:44] LABS: ALBUMIN 2.8 gm/dL (3.4-5.0); BILIRUBIN TOTAL 2.62 mg/dL (0.3-1.2); CALCIUM 7.7 mg/dL (8.5-10.1); CREATININE SERUM 1.02 mg/dL (0.70-1.30); GFR 88.28; PHOSPHOROUS 2.7 mg/dL (2.5-4.9); POTASSIUM 3.72 mEq/L (3.5-5.1); TOTAL PROTEIN 5.8 gm/dL (6.4-8.2)
[2024-07-07 07:50] LABS: C-REACTIVE PROTEIN 4.36 MG/DL (0.00-0.29)
[2024-07-07] MEDS ORDERED: INSULIN GLARGINE,HUM.REC.ANLOG 1,000 UNITS/10 ML UNITS SUBCUTANEO STA (21:11)
[2024-07-07] MEDS ORDERED: INSULIN GLARGINE,HUM.REC.ANLOG 1,000 UNITS/10 ML UNITS SUBCUTANEO ONE (21:54)
[2024-07-08 01:21] VITALS: BP 111/74; O2SAT 97
[2024-07-08] MEDS ORDERED: INSULIN LISPRO 1,000 UNIT/10 ML UNITS SUBCUTANEO SCH (08:00)
[2024-07-08] MEDS ORDERED: PANTOPRAZOLE SODIUM 40 MG TABLET.DR PO SCH (09:00)
[2024-07-08] MEDS ORDERED: RIVAROXABAN 10 MG TAB PO SCH (09:00)
[2024-07-08 09:15] VITALS: BP 132/89; O2SAT 98
[2024-07-08 16:53] LABS: URINE APPEARANCE Clear; URINE BILIRRUBIN Negative (NEGATIVE); URINE BLOOD Negative; URINE COLOR Yellow; URINE KETONE Negative (NEGATIVE); URINE LEUKOCYTE Negative; URINE NITRATE Negative; URINE PROTEIN Negative (NEGATIVE); URINE UROBILINOGEN 0.2 E.U./dl
[2024-07-08 16:54] LABS: URINE BACTERIA 6.1 uL (0.0-1933)
[2024-07-08] MEDS ORDERED: VANCOMYCIN HCL 1,000 MG VIAL IV SCH (17:00)
[2024-07-08 17:18] VITALS: BP 125/84
[2024-07-08 17:28] LABS: URINE EPITHELIAL CELLS 0.3 uL (0.0-38.8); URINE GLUCOSE >=1000 MG/DL (NEGATIVE); URINE RBC 1.1 uL (0.0-20.8); URINE WBC 1.5 uL (0.0-23.2)
[2024-07-08 17:31] LABS: ALBUMIN 3.4 gm/dL (3.4-5.0); BILIRUBIN TOTAL 1.57 mg/dL (0.3-1.2); BILIRUBIN,CONJUGATED 0.35 mg/dL (0.0-0.2); BILIRUBIN,UNCONJUGATED 1.22 mg/dL (0.0-0.6); TOTAL PROTEIN 6.5 gm/dL (6.4-8.2)
[2024-07-08] MEDS ORDERED: INSULIN GLARGINE,HUM.REC.ANLOG 1,000 UNITS/10 ML UNITS SUBCUTANEO SCH (21:00)
[2024-07-09 01:21] VITALS: BP 95/62
[2024-07-09 07:21] LABS: BASO % 0.5 % (0.1-1.2); EOS # 0.14 (0.04-0.54); EOS % 1.9 % (0.7-7.0); HEMATOCRIT 43.3 % (40.1-51.0); HEMOGLOBIN 14.3 g/dL (13.7-17.5); LYMPH # 3.24 (1.18-3.74); LYMPH % 43.4 % (19.3-53.1); MEAN CORPUSCULAR HEMOGLOBIN 28.1 pg (25.6-32.2); MONO # 0.83 (0.24-0.82); MONO % 11.1 % (4.7-12.5); PLATELET COUNT 227 K/uL (163-369); RED BLOOD COUNT 5.09 M/uL (4.63-6.08); RED CELL DISTRIBUTION WIDTH 13.1 % (11.6-14.4)
[2024-07-09 08:12] LABS: BILIRUBIN TOTAL 0.96 mg/dL (0.3-1.2); CALCIUM 8.4 mg/dL (8.5-10.1); CREATININE SERUM 0.64 mg/dL (0.70-1.30); GFR 151.17; GLOBULINA 2.7 G/DL (2.4-3.5); MAGNESIUM 1.9 mg/dL (1.8-2.4); PHOSPHOROUS 3.8 mg/dL (2.5-4.9); POTASSIUM 3.78 mEq/L (3.5-5.1); TOTAL PROTEIN 5.7 gm/dL (6.4-8.2)
[2024-07-09 08:14] LABS: C-REACTIVE PROTEIN 1.26 MG/DL (0.00-0.29)
[2024-07-09 08:25] VITALS: BP 121/78; O2SAT 96
[2024-07-09 15:17] LABS: AMYLASE 73 U/L (25-115); LIPASE 20 U/L (13-75)
[2024-07-09 17:35] VITALS: BP 176/76
[2024-07-09] MEDS ORDERED: AMOX-CLAV 875-1 EAC1 PO (18:08)
[2024-07-09 18:25] VITALS: BP 118/85
== END 2024-07-09 19:11 | disposition home or self-care (01) | DRG 871 ==
LOC: ER 14:25 → ICU-2 19:20 → SEC-K 07-07 12:06 → MEDJ 07-07 13:05
PROVIDERS: General Practice; Internal Medicine; Internal Medicine Infectious Disease; ADMIT Internal Medicine; ATTEND Internal Medicine
PROC: 4A12X4Z Monitoring of Cardiac Electrical Activity, External Approach (ICD-10-PCS; 2024-07-05)
PROC: BW40ZZZ Ultrasonography of Abdomen (ICD-10-PCS; principal; 2024-07-08)
DX: A41.9 Sepsis, unspecified organism (principal); E10.10 Type 1 diabetes mellitus with ketoacidosis without coma; N17.8 Other acute kidney failure; R65.10 Systemic inflammatory response syndrome (SIRS) of non-infectious origin without acute organ dysfunction; Z79.4 Long term (current) use of insulin; E86.0 Dehydration; E10.22 Type 1 diabetes mellitus with diabetic chronic kidney disease; N18.9 Chronic kidney disease, unspecified; D72.828 Other elevated white blood cell count; R00.0 Tachycardia, unspecified

== ENCOUNTER → 2024-07-10 | Emergency (ER) | payer OTHER ==
[~2024-07-10] MED LIST changes: +AMOX-CLAV 875-1 EAC1 PO
== END | disposition left against medical advice (07) ==
LOC: ER 19:18
DX: Z53.21 Procedure and treatment not carried out due to patient leaving prior to being seen by health care provider (principal)